=== PATIENT | female | born 1985 | race Caucasian/White ===

== ENCOUNTER 2016-10-22 15:47 | Emergency (ER) | payer BC, OTHER ==
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
--- NOTE | 2016-10-22 17:52 | CT ---
Head CT Technique: Multiple axial sections through the brain were obtained. Intravenous contrast was not utilized. Comparison: No previous intracranial imaging. Findings: Ventricles along with basal cisterns and sulci over the convexities are within normal limits for the patient's age. No abnormal parenchymal densities are seen. No evidence of intracranial hemorrhage. No midline shift or mass effect is seen. Bone window settings shows the visualized mastoid sinuses to appear clear. Visualized paranasal sinuses are clear. No calvarial abnormality is seen. Impression: 1. No abnormality is identified on noncontrast head CT study. Diagnostic code #1
[2016-10-22 19:15] VITALS: BP 123/87
== END 2016-10-22 19:10 | disposition home or self-care (01) ==
LOC: JD.ED 15:47
DX: S06.0X0A Concussion without loss of consciousness, initial encounter (principal); W01.198A Fall on same level from slipping, tripping and stumbling with subsequent striking against other object, initial encounter; F41.9 Anxiety disorder, unspecified; E03.9 Hypothyroidism, unspecified; F17.210 Nicotine dependence, cigarettes, uncomplicated; Z85.820 Personal history of malignant melanoma of skin; Z88.0 Allergy status to penicillin
CPT/HCPCS: 70450; 70450-26; 99284; 99284-25

== ENCOUNTER 2017-01-20 10:50 | Emergency (ER) | payer BC ==
[2017-01-20] MEDS ORDERED: Sodium Chloride 0.9% 10 ML Syringe FLUSH PRN (11:07)
[2017-01-20] MEDS ORDERED: LORazepam 2 MG/ML MDV IVPUSH ONE (11:08)
--- NOTE | 2017-01-20 11:23 | EDM.PDOC ---
ED HPI GENERAL MEDICAL PROBLEM - General Chief Complaint: Chest Pain Stated Complaint: [facility] Time Seen by Provider: 01/20/17 10:55 Source of Information: Reports: Patient, EMS History Limitations: Reports: No Limitations - History of Present Illness INITIAL COMMENTS - FREE TEXT/NARRATIVE: The patient presents with chest pain. She smoked meth for the 1st time last night. Her boyfriend relapsed and talked her into it. She went to bed and this morning she woke up and she was feeling fine. She took her adderol and went to walk her dog and then she started having chest pain, shortness of breath , palpitations and her face was flushed. She called 911 and EMS found the same when they got there. She had never had trouble with her heart in the past. She has no history of HTN, diabetes or hypercholesterolemia. Onset: Sudden Duration: Minutes: Location: Reports: Chest Quality: Reports: Pressure Severity: Moderate Improves with: Reports: None Worsens with: Reports: None Context: Reports: Activity (She was getting ready to walk her dog) Associated Symptoms: Reports: Chest Pain, Shortness of Breath. 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 Psychiatric History: Reports: Anxiety Endocrine/Metabolic History: Reports: Hypothyroidism Dermatologic History: Reports: Melanoma - Infectious Disease History Infectious Disease History: Reports: Herpes - Past Surgical History Female Surgical History: Reports: D&C Social & Family History - Family History Family Medical History: Noncontributory - Tobacco Use Smoking Status *Q: Current Every Day Smoker Years of Tobacco use: 1 Packs/Tins Daily: 0.3 - Caffeine Use Caffeine Use: Reports: Coffee, Energy Drinks, Soda, Tea - Recreational Drug Use Recreational Drug Use: No ED ROS GENERAL - Review of Systems Review Of Systems: See Below Constitutional: Reports: No Symptoms HEENT: Reports: No Symptoms Respiratory: Reports: Shortness of Breath Cardiovascular: Reports: Chest Pain, Palpitations Endocrine: Reports: No Symptoms GI/Abdominal: Reports: No Symptoms : Reports: No Symptoms Musculoskeletal: Reports: No Symptoms ED EXAM, GENERAL - Physical Exam Exam: See Below Exam Limited By: No Limitations General Appearance: Alert, No Apparent Distress Ears: Normal External Exam Nose: Normal Inspection Head: Atraumatic, Normocephalic Neck: Normal Inspection Respiratory/Chest: No Respiratory Distress, Lungs Clear, Normal Breath Sounds Cardiovascular: No Edema, No Murmur, Tachycardia GI/Abdominal: Soft, Non-Tender, No Organomegaly, No Mass Back Exam: Normal Inspection Extremities: Normal Inspection Neurological: Alert, Oriented, No Motor/Sensory Deficits Skin Exam: Other (Face is flushed) EKG INTERPRETATION EKG Date: 01/20/17 Time: 11:12 Rhythm: Other (Sinus tachycardia) Rate (Beats/Min): 107 [place]: Normal P-Wave: Present QRS: Normal ST-T: Normal QT: Normal Course - Vital Signs Last Recorded V/S: Last Vital Signs Temp 98.5 F 01/20/17 10:55 Pulse 108 H 01/20/17 12:15 Resp 20 01/20/17 10:55 BP 103/61 01/20/17 12:15 Pulse Ox 93 L 01/20/17 12:15 - Orders/Labs/Meds Orders: Active Orders 24 hr Category Date Time Status Cardiac Monitoring [RC] . DIRECTED Care 01/20/17 11:07 Active EKG Documentation Completion [RC] STAT Care 01/20/17 11:08 Active Oxygen Therapy [RC] PRN Care 01/20/17 11:08 Active Peripheral IV Care [RC] . DIRECTED Care 01/20/17 11:08 Active Chest 1V Frontal [CR] Stat Exams 01/20/17 11:08 Taken Sodium Chloride 0.9% [Saline Flush] Med 01/20/17 11:07 Active 10 ml FLUSH ASDIRECTED PRN Peripheral IV Insertion Adult [OM.PC] Stat Oth 01/20/17 11:07 Ordered Medication Orders Sodium Chloride (Saline Flush) 10 ml FLUSH ASDIRECTED PRN PRN Reason: Keep Vein Open Last Admin: 01/20/17 11:13 Dose: 10 ml Labs: Laboratory Tests 01/20/17 01/20/17 01/20/17 Range/Units 11:20 11:20 11:20 WBC 22.49 H (3.98-10.04) K/mm3 RBC 4.37 (3.98-5.22) M/mm3 Hgb 13.1 (11.2-15.7) gm/L Hct 37.9 (34.1-44.9) % MCV 86.7 (79.4-94.8) fl MCH 30.0 (25.6-32.2) pg MCHC 34.6 (32.2-35.5) g/dl RDW Std Deviation 40.7 (36.4-46.3) fL Plt Count 249 (182-369) K/mm3 MPV 10.8 (9.4-12.3) fl Neut % (Auto) 76.4 H (34.0-71.1) % Lymph % (Auto) 16.8 L (19.3-51.7) % [place] % (Auto) 6.1 (4.7-12.5) % Eos % (Auto) 0.4 L (0.7-5.8) Baso % (Auto) 0.0 L (0.1-1.2) % Neut # (Auto) 17.19 H (1.56-6.13) K/mm3 Lymph # (Auto) 3.77 H (1.18-3.74) K/mm3 [place] # (Auto) 1.37 H (0.24-0.36) K/mm3 Eos # (Auto) 0.09 (0.04-0.36) K/mm3 Baso # (Auto) 0.01 (0.01-0.08) K/mm3 Manual Slide Review Abnormal smear Sodium 141 (136-145) mEq/L Potassium 2.9 L (3.5-5.1) mEq/L Chloride 105 (98-107) mEq/L Carbon Dioxide 22 (21-32) mEq/L Anion Gap 16.9 H (5-15) BUN 12 (7-18) mg/dL Creatinine 1.0 (0.55-1.02) mg/dL Est Cr Clr Drug Dosing TNP Estimated GFR (MDRD) > 60 (>60) mL/min BUN/Creatinine Ratio 12.0 L (14-18) Glucose 107 H (74-106) mg/dL Calcium 8.9 (8.5-10.1) mg/dL Total Bilirubin 0.5 (0.2-1.0) mg/dL AST 12 L (15-37) U/L ALT 19 (14-59) U/L Alkaline Phosphatase 71 (46-116) U/L Troponin I < 0.017 (0.00-0.056) ng/mL Total Protein 7.4 (6.4-8.2) g/dl Albumin 3.9 (3.4-5.0) g/dl Globulin 3.5 gm/dL Albumin/Globulin Ratio 1.1 (1-2) HCG, Qual Negative (NEGATIVE) Meds: Medications Generic Name Dose Route Start Last Admin Trade Name Freq PRN Reason Stop Dose Admin Sodium Chloride 10 ml 01/20/17 11:07 01/20/17 11:13 Saline Flush FLUSH 10 ml ASDIRECTED PRN Administration Keep Vein Open Discontinued Medications Generic Name Dose Route Start Last Admin Trade Name Freq PRN Reason Stop Dose Admin Lorazepam 1 mg 01/20/17 11:08 01/20/17 11:13 Ativan IVPUSH 01/20/17 11:09 1 mg ONETIME ONE Administration - Re-Assessments/Exams Free Text/Narrative Re-Assessment/Exam: 01/20/17 11:25 I ordered an IV saline lock, EKG, CXR, labs, and ativan 1mg IV. 01/20/17 13:10 Her EKG shows a sinus tachycardia with no acute changes. Her CXR looks good. Her CBC looks good. Her CMP shows a low K of 2.9. I will give her a dose of potassium here and a prescription for more and discharge her home. Her HCG is negative. Departure - Departure Time of Disposition: 13:15 Disposition: Home, Self-Care 01 Condition: Good Clinical Impression: Hypokalemia, Methamphetamine use Chest pain Qualifiers: Chest pain type: unspecified Qualified Code(s): R07.9 - Chest pain, unspecified Prescriptions: Potassium Chloride [Klor-Con 10] 20 meq PO WITHBREAKFAST #10 tab.er Referrals: Erendira Mckenna PA-C [Primary Care Provider] - 1 Week Forms: ED Department Discharge Additional Instructions: Take the potassium daily until gone. Follow up with your provider and have your potassium checked. Do not take meth. Please return if you are worse. - My Orders Last 24 Hours: My Active Orders 01/20/17 11:07 Cardiac Monitoring [RC] . DIRECTED Sodium Chloride 0.9% [Saline Flush] 10 ml FLUSH ASDIRECTED PRN Peripheral IV Insertion Adult [OM.PC] Stat 01/20/17 11:08 EKG Documentation Completion [RC] STAT Oxygen Therapy [RC] PRN Peripheral IV Care [RC] . DIRECTED Chest 1V Frontal [CR] Stat - Assessment/Plan Last 24 Hours: My Active Orders 01/20/17 11:07 Cardiac Monitoring [RC] . DIRECTED Sodium Chloride 0.9% [Saline Flush] 10 ml FLUSH ASDIRECTED PRN Peripheral IV Insertion Adult [OM.PC] Stat 01/20/17 11:08 EKG Documentation Completion [RC] STAT Oxygen Therapy [RC] PRN Peripheral IV Care [RC] . DIRECTED Chest 1V Frontal [CR] Stat
[2017-01-20] MEDS ORDERED: Potassium Chloride 10 MEQ Tab.ER PO ONE (13:13)
[2017-01-20 13:26] VITALS: BP 111/47
--- NOTE | 2017-01-21 08:36 | CR ---
Chest: Portable view of the chest was obtained. Comparison: Previous chest x-ray of 07/19/16. Heart size and mediastinum are normal. Lungs are clear. Bony structures are grossly intact. Impression: 1. Nothing acute is identified on portable chest x-ray. Diagnostic code #1
== END 2017-01-20 13:35 | disposition home or self-care (01) ==
LOC: JD.ED 10:50 → SUPCPDRO 10:50 → JD.ED 13:35
DX: R07.9 Chest pain, unspecified (principal); E87.6 Hypokalemia; F15.90 Other stimulant use, unspecified, uncomplicated; F17.210 Nicotine dependence, cigarettes, uncomplicated; Z88.0 Allergy status to penicillin; E03.9 Hypothyroidism, unspecified
CPT/HCPCS: 36415; 71010; 80053; 84484; 84703; 85025; 93005; 96374; 99285; A9270; J2060; J7050; 99284

== ENCOUNTER 2017-04-13 22:10 | Emergency (ER) | payer BC, MEDICAID ==
[2017-04-13 22:49] VITALS: BP 122/95
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
== END 2017-04-13 23:25 | disposition home or self-care (01) ==
LOC: JD.ED 22:10
DX: K05.6 Periodontal disease, unspecified (principal); F17.210 Nicotine dependence, cigarettes, uncomplicated; E03.9 Hypothyroidism, unspecified; Z88.0 Allergy status to penicillin
CPT/HCPCS: 99282; 99283

== ENCOUNTER 2017-04-15 18:27 | Emergency (ER) | payer SELFPAY ==
[2017-04-15 18:37] VITALS: BP 136/103
[2017-04-15] MEDS ORDERED: LORazepam 1 MG Tab PO ONE (19:17)
--- NOTE | 2017-04-15 19:24 | EDM.PDOCBH ---
ED HPI GENERAL MEDICAL PROBLEM - General Chief Complaint: Neurological Problem Stated Complaint: NUMB FINGERTIPS/TROUBLE SWALLOWING Time Seen by Provider: 04/15/17 18:53 Source of Information: Reports: Patient History Limitations: Reports: No Limitations - History of Present Illness INITIAL COMMENTS - FREE TEXT/NARRATIVE: Patient is a 31-year-old female who presents to the ED with a history of methamphetamine use for the past 3 days. States she developed a sudden onset of right arm pain that shot up to her right shoulder and upper back. States right upper back discomfort described as a pressure sensation that has since resolved with admission to the ED. States she developed numbness and tingling to her fingers tips which is not unusual. States due to the methamphetamine use she's been told she has poor circulation to her hands. In addition states she had a panic attack after being told by her boyfriend that her lower lip was swelling. This was short-lived only lasting for a short period of time. States she has been utilizing methamphetamines for the past 6 months. She states on 4 different occasions she's used meth. States normally when she uses meth she smokes for about 4 days. She started smoking recently Saturday, Saturday, last time was Saturday. Denies any alcohol or other recreational drugs. She has a history of anxiety and depression but stopped these medications since she cant afford them. She denies any chest pain, shorthness of breath, nausea/vomiting, abdominal pain, dizziness, or any numbness or tingling to her fingers, or pain to her arm. 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 Psychiatric History: Reports: Anxiety Endocrine/Metabolic History: Reports: Hypothyroidism Dermatologic History: Reports: Melanoma - Infectious Disease History Infectious Disease History: Reports: Herpes - Past Surgical History Female Surgical History: Reports: D&C Social & Family History - Family History Family Medical History: Noncontributory - Tobacco Use Smoking Status *Q: Current Every Day Smoker Years of Tobacco use: 1 Packs/Tins Daily: 0.5 Second Hand Smoke Exposure: No - Caffeine Use Caffeine Use: Reports: Coffee, Energy Drinks, Soda, Tea - Recreational Drug Use Recreational Drug Use: Yes Drug Use in Last 12 Months: Yes Recreational Drug Type: Reports: Methamphetamine Other Recreational Drug Type: last use was two weeks ago Recreational Drug Use Frequency: Monthly ED ROS GENERAL - Review of Systems Review Of Systems: ROS reveals no pertinent complaints other than HPI. ED EXAM, BEHAVIORAL HEALTH - Physical Exam Exam: See Below Exam Limited By: No Limitations General Appearance: Alert, WD/WN, No Apparent Distress Ears: Hearing Grossly Normal Nose: Normal Inspection Throat/Mouth: Normal Inspection, Normal Oropharynx, Normal Voice, No Airway Compromise Head: Atraumatic, Normocephalic Neck: Normal Inspection, Supple, Non-Tender, Full Range of Motion. No: Lymphadenopathy (L) Respiratory/Chest: No Respiratory Distress, Lungs Clear, Normal Breath Sounds, No Accessory Muscle Use, Chest Non-Tender Cardiovascular: Normal Peripheral Pulses, Regular Rate, Rhythm Back Exam: Normal Inspection, Full Range of Motion. No: Muscle Spasm, Paraspinal Tenderness, Vertebral Tenderness Extremities: Normal Inspection, Normal Range of Motion, Non-Tender, Normal Capillary Refill Neurological: Alert, Normal Mood/Affect, CN II-XII Intact, Normal Cognition, No Motor/Sensory Deficits, Oriented x 3 Psychiatric: Alert, Normal Affect, Normal Cognition, Oriented, Other (anxious) Skin Exam: Warm, Dry, Intact, Normal color, No rash COURSE, BEHAVIORAL HEALTH COMP - Course Vital Signs: Last Vital Signs Temp 96.7 F 04/15/17 18:34 Pulse 100 04/15/17 18:34 Resp 16 04/15/17 18:34 BP 136/103 H 04/15/17 18:34 Pulse Ox 100 04/15/17 18:34 Orders, Labs, Meds: Medications Discontinued Medications Generic Name Dose Route Start Last Admin Trade Name Clyde PRN Reason Stop Dose Admin Lorazepam 1 mg 04/15/17 19:17 04/15/17 19:27 Ativan PO 04/15/17 19:18 1 mg ONETIME ONE Administration On examination there is no concerning findings. All symptoms have resolved. Patient does appear to be mildly anxious. I ordered 1 mg of Ativan. Offered contact information to get her help for drug abuse to which the patient denies. Departure - Departure Time of Disposition: 19:49 Disposition: Home, Self-Care 01 Condition: Good Clinical Impression: Methamphetamine use, Anxiety - Discharge Information Instructions: Dysphoria, Stimulant Use Disorder-Methamphetamines Referrals: [facility] [Outside] [facility] [facility] [employer] [facility] [Outside] Forms: ED Department Discharge Additional Instructions: As discussed unclear etiology of current complaint. Symptoms have resolved. Do believe the anxiety attack is associated with your methamphetamine use. Suggest following up with a treatment facility as listed to stop utilizing methamphetamine use. If you do not stop methamphetamines this will ruin your life. If you wish to have treatment or experience any new or worsening symptoms please return to the E.D.
== END 2017-04-15 20:06 | disposition home or self-care (01) ==
LOC: JD.ED 18:27
DX: F15.980 Other stimulant use, unspecified with stimulant-induced anxiety disorder (principal); E03.9 Hypothyroidism, unspecified; Z88.0 Allergy status to penicillin; F17.210 Nicotine dependence, cigarettes, uncomplicated
CPT/HCPCS: 99284; A9270

== ENCOUNTER 2017-08-08 11:14 | Emergency (ER) | payer MEDICAID, OTHER ==
[2017-08-08 11:33] VITALS: BP 125/75
[2017-08-08] MEDS ORDERED: Famotidine 20 MG/2 ML SDV IVPUSH ONE (11:35)
[2017-08-08] MEDS ORDERED: diphenhydrAMINE 50 MG/ML SDV IVPUSH ONE (11:35)
--- NOTE | 2017-08-08 11:42 | EDM.PDOC ---
ED HPI GENERAL MEDICAL PROBLEM - General Chief Complaint: Cardiovascular Problem Stated Complaint: RAPID HEART RATE Time Seen by Provider: 08/08/17 11:28 Source of Information: Reports: Patient History Limitations: Reports: No Limitations - History of Present Illness INITIAL COMMENTS - FREE TEXT/NARRATIVE: 32-year-old female presents to the ED with continued problems related to development of allergy to penicillin. This morning she had asked her boyfriend to get her some Tylenol and he accidentally gave her a penicillin tablet about 0600 hrs. She is known to be allergic to penicillin and by 0630 hrs. was starting to break out in hives with generalized pruritus develop swelling under her eyes feeling of throat closure and some trouble breathing. She took 2 Benadryl 25 mg tablets at home. Socially she was seen in the clinic at [facility] and she has received Solu-Medrol 125 mg IM and no further dose of 25 mg of Benadryl. Patient felt she was improved by time she left the clinic but outside cutting off the snow from her car she developed rapid heart rate beating in her chest dizziness and feeling like she might faint. She therefore came into the ED. Upon arrival she still shows signs of allergic response with marked puffiness of her face generalized erythema particularly the V of her anterior chest with some feeling of throat closure. Her initial heart rate was 88 in sinus on the monitor. I.e. she feels better when she's lying down. Still has generalized pruritus. Of note she has not had time to eat or drink yet today. Onset: Today Onset Date: 08/08/17 Onset Time: 06:30 Duration: Hour(s): Location: Reports: Generalized Severity: Moderate Improves with: Reports: None Context: Reports: Other (allergic reaction.). Denies: Activity, Exercise, Lifting, Sick Contact, Trauma Associated Symptoms: Reports: Rash, Shortness of Breath. 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 below) Throat Pain Score (Numeric/FACES): 3 - Related Data Allergies Allergy/AdvReac Type Severity Reaction Status Date / Time Penicillins Allergy Swelling Verified 01/20/17 10:59 Home Meds: Home Meds ALPRAZolam [Xanax] 0.5 mg PO DAILY PRN 08/08/17 [History] Dextroamphetamine/Amphetamine [Adderall 10 mg Tablet] 10 mg PO DAILY 08/08/17 [ History] Past Medical History - Past Health History Medical/Surgical History: Denies 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/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 Psychiatric History: Reports: Anxiety Endocrine/Metabolic History: Reports: Hypothyroidism Dermatologic History: Reports: Melanoma Other Dermatologic History: to the back and had it surgically removed - Infectious Disease History Infectious Disease History: Reports: Herpes - Past Surgical History Female Surgical History: Reports: D&C Social & Family History - Family History Family Medical History: Noncontributory - Tobacco Use Smoking Status *Q: Current Every Day Smoker Years of Tobacco use: 2 Packs/Tins Daily: 0.2 Second Hand Smoke Exposure: No - Caffeine Use Caffeine Use: Reports: None - Recreational Drug Use Recreational Drug Use: Yes Drug Use in Last 12 Months: Yes Recreational Drug Type: Reports: Cocaine, Methamphetamine Other Recreational Drug Type: last use was two weeks ago Recreational Drug Use Frequency: Monthly - Living Situation & Occupation Living situation: Reports: with Significant Other Occupation: Employed ED ROS GENERAL - Review of Systems Review Of Systems: See Below Constitutional: Reports: Fatigue. Denies: Fever, Chills, Malaise, Weakness HEENT: Reports: Other. Denies: Glasses Respiratory: Reports: Shortness of Breath, Wheezing (Itching of the eyes and swelling periorbitally.), Cough. Denies: Pleuritic Chest Pain, Sputum, Hemoptysis (Nonproductive) Cardiovascular: Reports: Dyspnea on Exertion, Other (Only since the allergic response.). Denies: Chest Pain Endocrine: Reports: Fatigue ( Feels her heart is beating fast in her chest and hard.) GI/Abdominal: Denies: Diarrhea Skin: Reports: Pruritis, Urticaria (Generalized urticaria particularly the face scalp chest and abdomen.) Neurological: Reports: Dizziness, Syncope (Near syncopal feeling.), Weakness. Denies: Pre-Existing Deficit, Seizure, Trouble Speaking, Difficulty Walking Psychiatric: Reports: Anxiety Hematologic/Lymphatic: Reports: No Symptoms Immunologic: Reports: No Symptoms ED EXAM, GENERAL - Physical Exam Exam: See Below Exam Limited By: No Limitations General Appearance: Alert, WD/WN, Anxious, Moderate Distress, Other (Suffering allergic reaction particularly noted swelling of her forehead and scalp. Periorbital swelling bilaterally.) Eye Exam: Bilateral Eye: Conjunctival Injection (Mild bilaterally), Periorbital Changes (Swelling of both the upper and lower eyelids bilaterally.), PERRL Throat/Mouth: Normal Inspection, Normal Oropharynx, Other Head: Atraumatic, Normocephalic (Uvula is normal.) Neck: Normal Inspection, Supple, Non-Tender, Full Range of Motion, Other (No stridor). No: Lymphadenopathy (L), Lymphadenopathy (R) Respiratory/Chest: No Respiratory Distress, Lungs Clear, Normal Breath Sounds, No Accessory Muscle Use, Chest Non-Tender, Respiratory Distress. No: Rales, Rhonchi, Wheezing Cardiovascular: Normal Peripheral Pulses, Regular Rate, Rhythm, No Gallop, No Murmur, No Rub. No: No Edema Peripheral Pulses: 3+: Posterior Tibial (L), Posterior Tibial (R), Dorsalis Pedis (L), Dorsalis Pedis (R) GI/Abdominal: Normal Bowel Sounds, Soft, Non-Tender, No Organomegaly Back Exam: Normal Inspection, Full Range of Motion. No: CVA Tenderness (L), CVA Tenderness (R) Extremities: Normal Inspection, Normal Range of Motion, Non-Tender, No Pedal Edema Neurological: Alert, Oriented, CN II-XII Intact, Normal Cognition, Normal Gait Psychiatric: Anxious Skin Exam: Warm, Dry, Erythema, Other (Urticaria.) EKG INTERPRETATION EKG Date: 08/08/17 Time: 11:25 Rhythm: NSR Rate (Beats/Min): 97 [place]: Normal P-Wave: Present QRS: Normal ST-T: Other (T-wave flattening in lead 3 nonspecific.) QT: Normal EKG Interpretation Comments: Essentially normal ECG Course - Vital Signs Last Recorded V/S: Last Vital Signs Temp 36.4 C 08/08/17 11:31 Pulse 88 08/08/17 11:31 Resp 17 08/08/17 11:31 BP 125/75 08/08/17 11:31 Pulse Ox 98 08/08/17 11:31 - Orders/Labs/Meds Orders: Active Orders 24 hr Category Date Time Status EKG Documentation Completion [RC] ASDIRECTED Care 08/08/17 11:29 Active Dextrose 5%-0.9% NaCl [Dextrose 5%-Normal Saline] 1,000 Med 08/08/17 11:45 Active ml IV ASDIRECTED EKG 12 Lead [EK] Stat Ther 08/08/17 11:29 Ordered Medication Orders Dextrose/Sodium Chloride (Dextrose 5%-Normal Saline) 1,000 mls @ 999 mls/hr IV ASDIRECTED [place] Last Admin: 08/08/17 11:50 Dose: 999 mls/hr Meds: Medications Generic Name Dose Route Start Last Admin Trade Name Freq PRN Reason Stop Dose Admin Dextrose/Sodium Chloride 1,000 mls @ 999 mls/hr 08/08/17 11:45 08/08/17 11:50 Dextrose 5%-Normal Saline IV 999 mls/hr ASDIRECTED [place] Administration Discontinued Medications Generic Name Dose Route Start Last Admin Trade Name Freq PRN Reason Stop Dose Admin Diphenhydramine HCl 25 mg 08/08/17 11:35 08/08/17 11:50 Benadryl IVPUSH 08/08/17 11:36 25 mg ONETIME ONE Administration Famotidine 20 mg 08/08/17 11:35 08/08/17 11:50 Pepcid IVPUSH 08/08/17 11:36 20 mg ONETIME ONE Administration - Radiology Interpretation Free Text/Narrative:: 32-year-old female presents the ED with palpitations with her heart beating hard and fast in her chest. She develops symptoms starting early this morning when she was accidentally given a penicillin tablet instead of a Tylenol tablet. She is known to be allergic to penicillin and developed allergic reaction within about 30 minutes of taking the medication she took 2 Benadryl 50 mg total immediately when she recognize what had happened. Initially started out with generalized pruritus and then developed hives particularly in her upper body abdomen axillas and then subsequently developed it in her scalp with periorbital swelling and troubles swallowing and shortness of breath. She was subsequently seen in the clinic and was given Solu-Medrol 125 mg IM further 50 [place] grams of Benadryl by mouth. She was feeling better before she left the clinic but when she was outside started to clean off the snow from her car she started to feel lightheaded dizzy with rapid heartbeat in her chest and like she might pass out. Upon arrival she still showing signs of urticaria and allergic response with swelling of her forehead hairline scalp periorbital edema uvula appears okay she still feels a sense of throat closure chest was clear to stage percussion with no wheezing. Skin shows evidence of urticaria she has not yet 8 or drank today. Therefore she requires fluids and D5 normal saline will be run at open. Given Pepcid 20 mg IV and a further dose of Benadryl 25 mg IV. Therefore tachycardia secondary to allergic response plus she is on depleted from 90 to drinking today. No true anaphylaxis is evident. - Re-Assessments/Exams Free Text/Narrative Re-Assessment/Exam: 08/08/17 13:11 has completed a liter of IV fluids. She feels he itches probably 75-80% improved. Redness and erythema swelling and hives are pretty well gone. I will therefore discharge her to home. She may need Benadryl 50 mg every 6 hours for a couple of doses. She is not working today. She does have a ride home. Departure - Departure Time of Disposition: 13:11 Disposition: Home, Self-Care 01 Condition: Fair Clinical Impression: Allergic reaction caused by a drug Qualifiers: Encounter type: initial encounter Qualified Code(s): T78.40XA - Allergy, unspecified, initial encounter Referrals: Tia Kelly PA-C [Primary Care Provider] - Forms: ED Department Discharge Additional Instructions: Evaluation in the emergency him today in regards to significant allergic reaction to penicillin tablet that she was given 2 by accident early this morning. Within a half an hour you certainly do develop symptoms of generalized itching then went on to develop hives trouble breathing throat closure symptoms swelling of the face hands etc. Says a fairly severe reaction to the penicillin. You already know you have a allergy to penicillin is certainly recommended never to take any of the penicillin relatives either. You are treated at home with Benadryl orally and then in the outpatient clinic with Solu -Medrol and Benadryl and then due to continued symptoms of feeling faint and lightheaded due to low blood pressure caused by the allergic response and perhaps by the medications you had to come to the ED. You're treated in the ED with a liter of IV fluids Benadryl 25 mg IV and Pepcid 20 mg IV to try and bring the allergic response under control. It is also felt that the initial dose of Solu-Medrol which takes 4-6 hours to start work is now starting to kick in and begin to alleviate some of your symptoms as well. Treatment is home to sleep rest this afternoon to the amount of Benadryl that you have taken today. Plenty of fluids when able. Just Gatorade or Powerade as it's very similar to IV fluids in terms of providing rehydration. A repeat Benadryl 50 mg every 6 hours if needed for severe itching or recurrence of rash. Return to the ED if you develop any signs of trouble breathing or swallowing again. - My Orders Last 24 Hours: My Active Orders 08/08/17 11:29 EKG Documentation Completion [RC] ASDIRECTED EKG 12 Lead [EK] Stat 08/08/17 11:45 Dextrose 5%-0.9% NaCl [Dextrose 5%-Normal Saline] 1,000 ml IV ASDIRECTED - Assessment/Plan Last 24 Hours: My Active Orders 08/08/17 11:29 EKG Documentation Completion [RC] ASDIRECTED EKG 12 Lead [EK] Stat 08/08/17 11:45 Dextrose 5%-0.9% NaCl [Dextrose 5%-Normal Saline] 1,000 ml IV ASDIRECTED
[2017-08-08] MEDS ORDERED: Dextrose 5%-0.9% NaCl 1,000 ML IV SCH (11:45)
== END 2017-08-08 13:19 | disposition home or self-care (01) ==
LOC: JD.ED 11:14
DX: T36.0X1A Poisoning by penicillins, accidental (unintentional), initial encounter (principal); L50.0 Allergic urticaria; R00.2 Palpitations; F17.210 Nicotine dependence, cigarettes, uncomplicated; Z88.0 Allergy status to penicillin; Z79.899 Other long term (current) drug therapy
CPT/HCPCS: 93005; 96361; 96374; 96375; 99285; J1200; J7042; 93010; 99284-25

== ENCOUNTER 2017-08-09 17:26 | Emergency (ER) | payer SELFPAY ==
[2017-08-09 17:36] VITALS: BP 111/74
[2017-08-09] MEDS ORDERED: Sodium Chloride 0.9% 1,000 ML IV ONE (18:06)
[2017-08-09] MEDS ORDERED: diphenhydrAMINE 50 MG/ML SDV IVPUSH ONE (18:08)
[2017-08-09] MEDS ORDERED: Albuterol/Ipratropium 3.0-0.5 MG/3 ML Neb Soln NEB ONE (18:08)
[2017-08-09] MEDS ORDERED: Famotidine 20 MG/2 ML SDV IVPUSH ONE (18:08)
[2017-08-09] MEDS ORDERED: methylPREDNISolone Sodium Succinate 125 MG/2 ML SDV IVPUSH ONE (18:09)
--- NOTE | 2017-08-09 18:11 | EDM.PDOC ---
<Blanco Pierre H - Last Filed: 08/09/17 23:55> ED HPI GENERAL MEDICAL PROBLEM - General Chief Complaint: Skin Complaint Stated Complaint: CHEST PAIN/ALLERGIC REACTION Time Seen by Provider: 08/09/17 18:05 - Related Data Allergies Allergy/AdvReac Type Severity Reaction Status Date / Time Penicillins Allergy Swelling Verified 01/20/17 10:59 Home Meds: Home Meds ALPRAZolam [Xanax] 0.5 mg PO DAILY PRN 08/08/17 [History] Dextroamphetamine/Amphetamine [Adderall 10 mg Tablet] 10 mg PO DAILY 08/08/17 [ History] predniSONE [Prednisone] 20 mg PO BID #8 tablet 08/10/17 [Rx] Course - Vital Signs Last Recorded V/S: Last Vital Signs Temp 36.3 C 08/09/17 17:31 Pulse 102 H 08/09/17 17:31 Resp 17 08/09/17 17:31 BP 111/74 08/09/17 17:31 Pulse Ox 100 08/09/17 18:09 - Orders/Labs/Meds Labs: Laboratory Tests 08/09/17 08/09/17 08/09/17 Range/Units 19:30 19:30 19:30 WBC 18.45 H (3.98-10.04) K/mm3 RBC 4.42 (3.98-5.22) M/mm3 Hgb 13.1 (11.2-15.7) gm/L Hct 38.9 (34.1-44.9) % MCV 88.0 (79.4-94.8) fl MCH 29.6 (25.6-32.2) pg MCHC 33.7 (32.2-35.5) g/dl RDW Std Deviation 42.1 (36.4-46.3) fL Plt Count 244 (182-369) K/mm3 MPV 11.9 (9.4-12.3) fl Neutrophils % (Manual) 73 H (40-60) % Band Neutrophils % 0 (0-10) % Lymphocytes % (Manual) 18 L (20-40) % Atypical Lymphs % 0 % Monocytes % (Manual) 8 (2-10) % Eosinophils % (Manual) 1 (0.7-5.8) % Basophils % (Manual) 0 L (0.1-1.2) Platelet Estimate Adequate Plt Morphology Comment Normal RBC Morph Comment Normal D-Dimer, Quantitative 1.09 H (0.19-0.59) mg/L Sodium 141 (136-145) mEq/L Potassium 3.2 L (3.5-5.1) mEq/L Chloride 105 (98-107) mEq/L Carbon Dioxide 26 (21-32) mEq/L Anion Gap 13.2 (5-15) BUN 11 (7-18) mg/dL Creatinine 0.8 (0.55-1.02) mg/dL Est Cr Clr Drug Dosing 73.86 mL/min Estimated GFR (MDRD) > 60 (>60) mL/min BUN/Creatinine Ratio 13.8 L (14-18) Glucose 92 (74-106) mg/dL Calcium 9.3 (8.5-10.1) mg/dL Total Bilirubin 0.4 (0.2-1.0) mg/dL AST 15 (15-37) U/L ALT 22 (14-59) U/L Alkaline Phosphatase 75 (46-116) U/L CK-MB (CK-2) 0.7 (0-3.6) ng/ml Troponin I < 0.017 (0.00-0.056) ng/mL C-Reactive Protein 0.4 (<1.0) mg/dL Total Protein 7.3 (6.4-8.2) g/dl Albumin 3.8 (3.4-5.0) g/dl Globulin 3.5 gm/dL Albumin/Globulin Ratio 1.1 (1-2) Meds: Medications Discontinued Medications Generic Name Dose Route Start Last Admin Trade Name Clyde PRN Reason Stop Dose Admin Albuterol/Ipratropium 3 ml 08/09/17 18:08 08/09/17 18:43 Duoneb 3.0-0.5 Mg/3 Ml NEB 08/09/17 18:09 3 ml ONETIME ONE Administration Diphenhydramine HCl 50 mg 08/09/17 18:08 08/09/17 18:35 Benadryl IVPUSH 08/09/17 18:09 50 mg ONETIME ONE Administration Famotidine 20 mg 08/09/17 18:08 08/09/17 18:33 Pepcid IVPUSH 08/09/17 18:09 20 mg ONETIME ONE Administration Fentanyl 50 mcg 08/09/17 18:53 08/09/17 19:30 Sublimaze IVPUSH 08/09/17 18:54 50 mcg ONETIME ONE Administration Sodium Chloride 1,000 mls @ 999 mls/hr 08/09/17 18:06 08/09/17 18:31 Normal Saline IV 08/09/17 19:06 999 mls/hr ONETIME ONE Administration Sodium Chloride 100 mls @ 60 mls/hr 08/09/17 21:15 08/09/17 21:09 Normal Saline IV 60 mls/hr ASDIRECTED TRINIDAD Administration Iopamidol 100 ml 08/09/17 21:03 08/09/17 21:08 Isovue-370 (76%) IVPUSH 08/09/17 21:04 100 ml ONETIME ONE Administration Ketorolac Tromethamine 30 mg 08/09/17 19:00 08/09/17 19:46 Toradol IVPUSH 30 mg ONETIME TRINIDAD Administration Lorazepam 0.5 mg 08/09/17 18:15 08/09/17 18:37 Ativan IVPUSH 08/09/17 18:16 0.5 mg ONETIME ONE Administration Lorazepam 0.5 mg 08/09/17 18:52 08/09/17 19:14 Ativan IVPUSH 08/09/17 18:53 0.5 mg ONETIME ONE Administration Methylprednisolone Sodium Succinate 125 mg 08/09/17 18:09 08/09/17 18:34 Solu-Medrol IVPUSH 08/09/17 18:10 125 mg ONETIME ONE Administration Sodium Chloride 10 ml 08/09/17 21:03 08/09/17 21:09 Saline Flush FLUSH 08/09/17 21:04 10 ml ONETIME ONE Administration - Re-Assessments/Exams Free Text/Narrative Re-Assessment/Exam: 08/09/17 20:07 I have taken the patient for Dr. Redd. I agree with his assessment. When I went to see her she still has some faint erythema on her cheeks and her anterior chest but there is no hives or urticaria noted. I spoke to her but she is pretty groggy from the medications. Her d-dimer did come back elevated white count was 18,000. We're going to get a CT angiogram looking for pulmonary emboli and if she does have any hint of pneumonia will see that as well with a CT scan. Her chest x-ray however did not suggest any acute infiltrates but it wasn't a great inspiratory film. Her heart rate was 77 and her blood pressure is 101/60. 08/09/17 23:55 CT scan of the chest looking for PE shows no acute abnormalities and no evidence of pulmonary emboli. 08/09/17 23:58 I spoke to the patient. She is feeling better she's been sleeping this entire time he having no difficulty in breathing and no urticaria are noted. She wants to go home now. Departure - Departure Time of Disposition: 00:00 Disposition: Home, Self-Care 01 Condition: Good Clinical Impression: Urticaria, Shortness of breath, Anxiety Allergic reaction to penicillin Qualifiers: Encounter type: initial encounter Qualified Code(s): T36.0X5A - Adverse effect of penicillins, initial encounter - Discharge Information Prescriptions: predniSONE [Prednisone] 20 mg PO BID #8 tablet Instructions: Shortness of Breath, [id number], Hives, Allergies, [id number] Referrals: PCP,None [Primary Care Provider] - Forms: ED Department Discharge, ED Return to Work/School Form Additional Instructions: Home rest and sleep, avoid any hot showers or baths only take tepid showers or baths for the next 48 hours, start the prednisone tomorrow when you get the prescription, no strenuous activity or exercise for the next 72 hours, follow- up with your family doctor early this week for recheck or return to the ER if your symptoms worsen. <Kaleb Redd - Last Filed: 08/11/17 19:13> ED HPI GENERAL MEDICAL PROBLEM - General Source of Information: Reports: Patient History Limitations: Reports: No Limitations - History of Present Illness INITIAL COMMENTS - FREE TEXT/NARRATIVE: 32-year-old female presents to the ED with recurrence of allergic reaction to medication. I had seen her yesterday after she had accidentally been given a penicillin tablet unclear whether this was Amoxil for ampicillin or Pen-Vee K. Was given to accidentally about 6:00 in the morning and she developed allergic reaction but within half an hour. This included diffuse itching erythema particularly in the V of her neck shortness of breath pressure in her throat swelling of her eyes both upper and lower eyelids inflammation or erythema per forehead and scalp and some urticaria. She did not have any respiratory embarrassment or wheezing. She states that about an hour and a half ago she started to develop generalized itching severe redness in her anterior chest throat closure feeling and pleuritic chest pain and difficult to lie down flat cousin makes the pain worse. This was suggest a mild pericarditis. She has no urticaria but she has generalized pruritus and severe erythema of the face and chest. Yesterday she had received Benadryl almost 125 mg in total over. 4 hours as well as Solu-Medrol 125 mg at the walk-in clinic and here she received Pepcid IV 20 mg and Benadryl 25 mg IV with good relief of her symptoms. Onset: Today Onset Date: 08/09/17 Onset Time: 16:30 Duration: Hour(s): Location: Reports: Head, Face, Neck, Back Quality: Reports: Sharp, Stabbing Severity: Moderate (Pain in her chest is sharp and stabbing eye pleuritic. Worse when she tries to lie down.) Improves with: Reports: Other (Sitting up makes a difference.) Worsens with: Reports: Other Context: Reports: Other (Allergic reaction to penicillin tablet given to her by accident yesterday morning.). Denies: Activity (Lying down or coughing), Exercise, Lifting, Sick Contact Associated Symptoms: Reports: Chest Pain, Shortness of Breath. Denies: Confusion, Cough (Sharp stabbing pleuritic chest pain today), cough w sputum, Diaphoresis, Fever/Chills, Headaches, Loss of Appetite, Malaise, Nausea/Vomiting , Rash, Seizure, Syncope, Weakness Treatments HEEL DIPPER: Reports: Other (see below) (Benadryl) Chest Pain Score (Numeric/FACES): 4 Past Medical History - Past Health History Medical/Surgical History: Denies Medical/Surgical History [employer] History: Reports: Spontaneous Psychiatric History: Reports: Anxiety Endocrine/Metabolic History: Reports: Hypothyroidism Dermatologic History: Reports: Melanoma Other Dermatologic History: to the back and had it surgically removed - Infectious Disease History Infectious Disease History: Reports: Herpes - Past Surgical History Female Surgical History: Reports: D&C Social & Family History - Family History Family Medical History: Noncontributory - Tobacco Use Smoking Status *Q: Current Every Day Smoker Years of Tobacco use: 5 Packs/Tins Daily: 0.2 Second Hand Smoke Exposure: No - Caffeine Use Caffeine Use: Reports: None - Recreational Drug Use Recreational Drug Use: Yes Drug Use in Last 12 Months: Yes Recreational Drug Type: Reports: Marijuana/Hashish, Methamphetamine Other Recreational Drug Type: last use was two weeks ago Recreational Drug Use Frequency: Not Used In Over 1 Month - Living Situation & Occupation Living situation: Reports: with Significant Other Occupation: Employed ED ROS GENERAL - Review of Systems Review Of Systems: See Below Constitutional: Reports: Malaise, Weakness, Fatigue (Slept mostly yesterday after receiving 125 mg of Benadryl over a period of 5 hours.), Decreased Appetite. Denies: Fever, Chills HEENT: Reports: Other Respiratory: Reports: Shortness of Breath, Wheezing, Cough, Other. Denies: Pleuritic Chest Pain, Sputum, Hemoptysis Cardiovascular: Reports: Chest Pain (Ivone chest pain worsened by lying flat.) . Denies: Blood Pressure Problem ( She above), Claudication, Dyspnea on Exertion, Edema, Lightheadedness, Orthopnea, Palpitations, PND Endocrine: Reports: No Symptoms GI/Abdominal: Denies: Abdominal Pain : Reports: No Symptoms Musculoskeletal: Reports: No Symptoms Skin: Reports: Pruritis, Erythema Neurological: Reports: No Symptoms (Particular in the shape of her anterior chest. Also her face and scalp.) Psychiatric: Reports: Anxiety, Other Hematologic/Lymphatic: Denies: No Symptoms (She is quite fearful.) Immunologic: Denies: No Symptoms ED EXAM, SKIN/RASH Exam: See Below Exam Limited By: No Limitations General Appearance: Alert, WD/WN, Moderate Distress (Very apprehensive and obviously distressed by the severe itching. The pleuritic chest pain is bothering her a good deal as well.) Eye Exam: Bilateral Eye: Periorbital Changes (Owing of both the upper and lower eyelids bilaterally. Diffuse erythema of the face forehead and scalp.) Ears: Other (They are reddened but no swelling.) Throat/Mouth: Normal Inspection, Normal Lips, Normal Oropharynx, Other (Uvula or floor of the mouth are normal.) Head: Facial Swelling (Scalp is erythematous and very periorbitally and below the eyes.), Other Neck: Normal Inspection, Supple, Non-Tender, Full Range of Motion, Other ( Erythema from the VA of her neck extends up into her anterior neck in zone 1 and zone 2.) Respiratory/Chest: No Respiratory Distress, Lungs Clear, Chest Non-Tender, Respiratory Distress, Wheezing (Very faint occasional expiratory wheeze.) Cardiovascular: Normal Peripheral Pulses, Regular Rate, Rhythm, No Edema, No Murmur (Mild tachypnea.), Tachycardia Peripheral Pulses: 2+: Posterior Tibial (L), Posterior Tibial (R), Dorsalis Pedis (L), Dorsalis Pedis (R) GI/Abdominal: Normal Bowel Sounds, Soft, Non-Tender, No Organomegaly, No Abnormal Bruit, No Mass, Pelvis Stable Back Exam: Normal Inspection, Full Range of Motion. No: CVA Tenderness (L), CVA Tenderness (R) Extremities: Normal Inspection, Normal Range of Motion, Non-Tender, No Pedal Edema, Increased Warmth Neurological: Alert, Oriented, CN II-XII Intact, Normal Cognition, Normal Gait Psychiatric: Anxious Skin: Warm, Dry, Erythema (July anterior chest face neck.) Location, Skin: Head (Scalp), Face, Neck, Chest Characteristics: Macular, Erythematous, Other Associated features: Warmth Course - Orders/Labs/Meds Labs: Laboratory Tests 08/09/17 08/09/17 08/09/17 Range/Units 19:30 19:30 19:30 WBC 18.45 H (3.98-10.04) K/mm3 RBC 4.42 (3.98-5.22) M/mm3 Hgb 13.1 (11.2-15.7) gm/L Hct 38.9 (34.1-44.9) % MCV 88.0 (79.4-94.8) fl MCH 29.6 (25.6-32.2) pg MCHC 33.7 (32.2-35.5) g/dl RDW Std Deviation 42.1 (36.4-46.3) fL Plt Count 244 (182-369) K/mm3 MPV 11.9 (9.4-12.3) fl Neutrophils % (Manual) 73 H (40-60) % Band Neutrophils % 0 (0-10) % Lymphocytes % (Manual) 18 L (20-40) % Atypical Lymphs % 0 % Monocytes % (Manual) 8 (2-10) % Eosinophils % (Manual) 1 (0.7-5.8) % Basophils % (Manual) 0 L (0.1-1.2) Platelet Estimate Adequate Plt Morphology Comment Normal RBC Morph Comment Normal D-Dimer, Quantitative 1.09 H (0.19-0.59) mg/L Sodium 141 (136-145) mEq/L Potassium 3.2 L (3.5-5.1) mEq/L Chloride 105 (98-107) mEq/L Carbon Dioxide 26 (21-32) mEq/L Anion Gap 13.2 (5-15) BUN 11 (7-18) mg/dL Creatinine 0.8 (0.55-1.02) mg/dL Est Cr Clr Drug Dosing 73.86 mL/min Estimated GFR (MDRD) > 60 (>60) mL/min BUN/Creatinine Ratio 13.8 L (14-18) Glucose 92 (74-106) mg/dL Calcium 9.3 (8.5-10.1) mg/dL Total Bilirubin 0.4 (0.2-1.0) mg/dL AST 15 (15-37) U/L ALT 22 (14-59) U/L Alkaline Phosphatase 75 (46-116) U/L CK-MB (CK-2) 0.7 (0-3.6) ng/ml Troponin I < 0.017 (0.00-0.056) ng/mL C-Reactive Protein 0.4 (<1.0) mg/dL Total Protein 7.3 (6.4-8.2) g/dl Albumin 3.8 (3.4-5.0) g/dl Globulin 3.5 gm/dL Albumin/Globulin Ratio 1.1 (1-2) Meds: Medications Discontinued Medications Generic Name Dose Route Start Last Admin Trade Name Freq PRN Reason Stop Dose Admin Albuterol/Ipratropium 3 ml 08/09/17 18:08 08/09/17 18:43 Duoneb 3.0-0.5 Mg/3 Ml NEB 08/09/17 18:09 3 ml ONETIME ONE Administration Diphenhydramine HCl 50 mg 08/09/17 18:08 18 18:35 Benadryl IVPUSH 08/09/17 18:09 50 mg ONETIME ONE Administration Famotidine 20 mg 08/09/17 18:08 08/09/17 18:33 Pepcid IVPUSH 08/09/17 18:09 20 mg ONETIME ONE Administration Fentanyl 50 mcg 08/09/17 18:53 08/09/17 19:30 Sublimaze IVPUSH 08/09/17 18:54 50 mcg ONETIME ONE Administration Sodium Chloride 1,000 mls @ 999 mls/hr 08/09/17 18:06 08/09/17 18:31 Normal Saline IV 08/09/17 19:06 999 mls/hr ONETIME ONE Administration Sodium Chloride 100 mls @ 60 mls/hr 08/09/17 21:15 08/09/17 21:09 Normal Saline IV 60 mls/hr ASDIRECTED TRINIDAD Administration Iopamidol 100 ml 08/09/17 21:03 08/09/17 21:08 Isovue-370 (76%) IVPUSH 08/09/17 21:04 100 ml ONETIME ONE Administration Ketorolac Tromethamine 30 mg 08/09/17 19:00 08/09/17 19:46 Toradol IVPUSH 30 mg ONETIME TRINIDAD Administration Lorazepam 0.5 mg 08/09/17 18:15 08/09/17 18:37 Ativan IVPUSH 08/09/17 18:16 0.5 mg ONETIME ONE Administration Lorazepam 0.5 mg 08/09/17 18:52 08/09/17 19:14 Ativan IVPUSH 08/09/17 18:53 0.5 mg ONETIME ONE Administration Methylprednisolone Sodium Succinate 125 mg 08/09/17 18:09 08/09/17 18:34 Solu-Medrol IVPUSH 08/09/17 18:10 125 mg ONETIME ONE Administration Sodium Chloride 10 ml 08/09/17 21:03 08/09/17 21:09 Saline Flush FLUSH 08/09/17 21:04 10 ml ONETIME ONE Administration - Radiology Interpretation Free Text/Narrative:: 32-year-old female returns to the ED with recurrence of allergic reaction secondary to receiving a penicillin tablet yesterday morning. She was treated aggressively history morning and things settle down and she states she was fine up until about 2 hours ago she started to develop generalized itch then pleuritic chest pain that made it difficult very difficult to lie down. Feels pressure in her throat and in her chest. She drank water and she felt it went down her back evaluated in her anterior chest. She has developed generalized erythema of the anterior chest face with periorbital swelling and generalized pruritus. No hives are evident. She was treated with Solu-Medrol at the walk-in clinic yesterday and I did not give her steroids in the ED. She was treated with Benadryl 25 mg and Pepcid 20 mg in the ED yesterday morning with settling of her symptoms. She taken Benadryl 50 mg at home prior to being seen in the walk-in clinic where she received another 0 mg of Benadryl. At present she is expressing a recurrence of allergic reaction. Plan IV normal saline at open. Will give Ativan 0.5 mg IV for her anxiety. Benadryl 50 mg IV. Pepcid 20 mg IV and Solu-Medrol 125 mg IV. Chest x-ray will be done. She will also receive a DuoNeb to see if it helps alleviate some of her respiratory distress. Of note she was exhibiting very mild expiratory wheezes on exam. - Re-Assessments/Exams Free Text/Narrative Re-Assessment/Exam: 08/09/17 18:48 one view chest x-ray and appears to be within normal limits with no obvious vascular congestion and no signs of any pericardial effusion clinically. She remains very apprehensive and obviously anxious. She is complaining of sharp stabbing pleuritic chest pain. Will therefore give her Toradol 30 mg IV and fentanyl 50 g IV and another dose of Ativan 0.5 mg IV as a believe a lot of her current symptoms are in fact anxiety related. She reports the itching is less than it was. I believe she would do very poorly with epinephrine as would cause an increased tachycardia. She does not in any severe distress from allergic reaction --more anxiety. 08/09/17 19:28 still complaining of pleuritic chest pain. I will therefore have lab work carried out including cardiac markers and a d-dimer in case I'm missing something. I will turn the care over to Dr. Pierre as it is change of shift. My impression is if the labs are okay and her condition settles she should be able to go home on prednisone 20 mg twice a day for 5 days to ensure no recurrence of allergic symptoms. Benadryl can be used every 6 hours when necessary for recurrence of itch and/or skin erythema.
[2017-08-09] MEDS ORDERED: LORazepam 2 MG/ML SDV IVPUSH ONE ×2 (18:15→18:52)
[2017-08-09] MEDS ORDERED: fentaNYL 100 MCG/2 ML SDV IVPUSH ONE (18:53)
[2017-08-09] MEDS ORDERED: Ketorolac 30 MG/ML SDV IVPUSH SCH (19:00)
[2017-08-09] MEDS ORDERED: Sodium Chloride 0.9% 10 ML Syringe FLUSH ONE (21:03)
[2017-08-09] MEDS ORDERED: Iopamidol 755 Mg/ML 100 ML Bottle IVPUSH ONE (21:03)
[2017-08-09] MEDS ORDERED: Sodium Chloride 0.9% 100 ML IV SCH (21:15)
--- NOTE | 2017-08-11 17:47 | CR ---
Chest: Frontal view of the chest was obtained utilizing portable technique. Comparison: No prior chest x-ray. Heart size and mediastinum are normal. Lungs are clear. Bony structures are unremarkable. Impression: 1. Nothing acute is identified on portable chest x-ray. Diagnostic code #1
--- NOTE | 2017-08-11 17:47 | CT ---
CT chest Technique: Multiple axial sections were obtained through the chest. Intravenous contrast was utilized. Study has been performed as a pulmonary angiogram protocol. Comparison: No prior chest CT, previous chest x-ray performed earlier on the same date (6:19 PM). Findings: Pulmonary arteries are well-opacified. No filling defects are seen to indicate pulmonary embolism. Mediastinum and hilar regions show no adenopathy or mass. No pericardial thickening is seen. Small portion of the visualized upper abdominal structures are within normal limits. Minimal areas of atelectasis are seen posteriorly within both lung bases which is incidental. Lungs otherwise are clear. Bone window settings were reviewed which appear within normal limits for the patient's age. Impression: 1. No findings of pulmonary embolism. 2. Minimal atelectasis which is incidental. 3. CT chest is otherwise unremarkable. Diagnostic code #1 Agree with preliminary report issued by [facility] ([facility] preliminary report dictated on 08/09/17, 10:28 PM Central Time)
== END 2017-08-10 00:15 | disposition home or self-care (01) ==
LOC: JD.ED 17:26
DX: L50.0 Allergic urticaria (principal); R06.02 Shortness of breath; T36.0X5A Adverse effect of penicillins, initial encounter; F17.210 Nicotine dependence, cigarettes, uncomplicated; E03.9 Hypothyroidism, unspecified; F41.8 Other specified anxiety disorders
CPT/HCPCS: 36415; 71045; 71275; 80053; 82553; 84484; 85025; 85379; 86140; 94640; 96361; 96374; 96375; 96376; 99284; J1200; J1885; J2060; J2930; J3010; J7030; J7040; J7050; Q9967